=== PATIENT | male | born 1980 | race Caucasian/White ===

== ENCOUNTER 2017-10-21 13:28 | Day surgery (SDC) | payer BC ==
[2017-10-21] MEDS ORDERED: PROPOFOL 40 ML (14:36)
== END 2017-10-21 15:46 | disposition home or self-care (01) ==
LOC: GIL 13:28
DX: K29.50 Unspecified chronic gastritis without bleeding (principal); K64.8 Other hemorrhoids; I10 Essential (primary) hypertension
CPT/HCPCS: 43239; 87081; 88305